=== PATIENT | male | born 2000 | race Two or more races ===

== ENCOUNTER 2024-11-17 18:08 | Emergency (ER) | payer MEDICAID, OTHER ==
[~2024-11-17] VITALS: Ht 172.7 cm; Wt 67.8 kg
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
--- NOTE | 2024-11-17 18:50 | DVH ---
EXAM: CT HEAD WITHOUT CONTRAST INDICATION: FACE INJURY TECHNIQUE: CT of the head without intravenous contrast. Radiation Dose : 1. Head: CT Dose: CTDI volume is 53.73 mGy. Dose-length product is 861.41 mGy*cm The dose indicators for CT are the volume Computed Tomography (CT) Dose Index (CTDIvol) and the Dose Length Product (DLP), and are measured in units of mGy and mGy-cm, respectively. These indicators are not patient dose, but values generated from the CT scanner acquisition factors. The report includes radiation exposure data for exposures received during this examination. COMPARISON: None FINDINGS: There is no evidence of acute intracranial hemorrhage, extra-axial collection, mass effect, midline s hift, herniation or hydrocephalus. The ventricles, sulci and cisterns are age appropriate. The chavarria-white differentiation is intact. Patchy periventricular and subcortical white matter hypoattenuation is nonspecific but may be related to small vessel ischemic disease. The visualized paranasal sinuses and mastoid air cells are clear. The surrounding soft tissues and osseous structures are unremarkable. IMPRESSION: 1. No acute intracranial abnormality. Radiation optimization: All CT scans at this facility use at least one of these dose optimization trey hniques: automated exposure control mA and/or kV adjustment per patient size (includes targeted exam s where dose is matched to clinical indication) or iterative reconstruction.
--- NOTE | 2024-11-17 19:04 | DVH ---
HISTORY: FACE INJURY TECHNIQUE: Nonenhanced axial images through the facial bones with coronal and sagittal MPR. Radiation Dose Information: CT Dose: CTDI volume is 66.97 mGy. Dose-length product is 1363.97 mGy*cm COMPARISON: None FINDINGS: Mandible: Nondisplaced acute traumatic fracture of the right mandibular body. Minimally displaced acute traumatic fracture of the left mandibular neck. Minimally displaced acute traumatic fracture of the left mandibular condylar process Maxilla: Unremarkable Zygomatic arches: Unremarkable Nasal bone: Unremarkable Orbits: Unremarkable Sinuses: Clear Facial swelling: None IMPRESSION: Nondisplaced acute traumatic fracture of the right mandibular body Minimally displaced acute traumatic fracture of the left mandibular condylar process. Minimally displaced acute traumatic fracture of the left mandibular coronoid process Radiation optimization: All CT scans at this facility use at least one of these dose optimization trey hniques: automated exposure control mA and/or kV adjustment per patient size (includes targeted exam s where dose is matched to clinical indication) or iterative reconstruction.
--- NOTE | 2024-11-17 19:29 | DVH ---
EXAM: CT NECK WITHOUT CONTRAST INDICATION: FACE INJURY EXAM DATE: 11/17/2024 06:30 PM COMPARISON: None TECHNIQUE: Multiple axial CT images of the neck were obtained using bone algorithm. Axial and coronal reformatting was done. Bone and soft tissue windows were reviewed. Radiation Dose Information: CT Dose: CTDI volume is 17.83 mGy. Dose-length product is 426.55 mGy*cm Findings: Nasopharynx, oropharynx, hypopharynx, and larynx are normal in caliber without evidence of focal mass . Parotid, submandibular, and sublingual glands are within normal limits. The tongue is unremarkable. Thyroid gland within normal limits. No evidence of superior mediastinal lymphadenopathy. Cervical soft tissues within normal limits with no evidence of significant cervical lymphadenopathy. Mildly displaced left mandibular ramus fracture. Impression: 1. Mildly displaced left mandibular ramus fracture.
[2024-11-17 19:45] VITALS: PULSE 84; RESP 14; O2SAT 98
[2024-11-17 19:48] LABS: Basophils # (auto) 0.1 10 ^3/uL (0-0.2); Basophils % (auto) 0.5 % (0.0-2.0); Eosinophils # (auto) 0 10 ^3/uL (0-0.8); Eosinophils % (auto) 0.3 % (0.0-7.0); Hematocrit 45.8 % (41.0-53.0); Hemoglobin 14.9 g/dL (13.5-17.5); Lymphocytes # (auto) 2.2 10 ^3/uL (0.4-5.4); Lymphocytes % (auto) 13.8 % (10.0-50.0); Mean Corpuscular Hemoglobin 29.1 pg (28.0-32.0); Mean Corpuscular Hgb Conc. 32.5 g/dL (32.0-36.0); Mean Corpuscular Volume 89.5 fL (80.0-100.0); Monocytes # (auto) 0.8 10 ^3/uL (0-1.3); Monocytes % (auto) 5.2 % (0.0-12.0); Neutrophils # (auto) 12.7 10 ^3/uL (1.6-8.6); Neutrophils % (auto) 80.2 % (37.0-80.0); Nucleated Red Blood Cells % 0.1 %; Platelet Count (auto) 430 10^3/uL (140-450); Red Blood Cells 5.12 10^6/uL (4.5-5.90); Red Cell Distribution Width 13.8 % (11.8-14.3); White Blood Cell 15.8 10^3/uL (4.4-10.8)
[2024-11-17] MEDS: ONDANSETRON HCL 4 MG/2 ML VIAL IV ONE (19:51)
[2024-11-17] MEDS: MORPHINE SULFATE INJ 2 MG/ml SYRG IV ONE (19:51)
[2024-11-17] MEDS: TETANUS-DIPTH-ACEL PERTUSSIS 0.5ML SYR Tdap IM ONE (19:53)
[2024-11-17 20:02] LABS: Alanine Aminotransferase 18 U/L (7-40); Albumin 4.8 g/dL (3.2-4.8); Alkaline Phosphatase 105 U/L (46-116); Anion Gap 11 (5-15); Aspartate Aminotransferase 22 U/L (13-40); BUN/Creatinine Ratio 9.4 (10.0-20.0); Bilirubin, Total 1.1 mg/dL (0.2-1.0); Calcium 9.9 mg/dL (8.7-10.4); Carbon Dioxide 23 mmol/L (20-31); Chloride 104 mmol/L (98-107); Glucose 102 mg/dL (74-106); Potassium 3.8 mmol/L (3.5-5.1); Sodium 138 mmol/L (136-145); Total Protein 7.5 g/dL (5.7-8.2)
[2024-11-17 20:03] LABS: Blood Urea Nitrogen 9 mg/dL (9-23)
[2024-11-17] MEDS: AMPICILLIN & SULBACTAM SODIUM 3 GM in SODIUM CHL 0.9% 100 ML IV STA (20:14)
[2024-11-17 20:54] LABS: Urine Bacteria MANY /hpf (None Seen); Urine Blood Negative /uL (Negative); Urine Clarity Turbid (Clear); Urine Color Yellow (Yellow); Urine Mucus FEW (None Seen); Urine Protein, UAD TRACE (Negative); Urine Specific Gravity 1.019 (1.001-1.035); Urine Sperm PRESENT /hpf (None Seen); Urine Squamous Epithelial Cell FEW /hpf (<5); Urine Urobilinogen Normal (Negative); Urine WBC 51 /HPF (0-3)
[2024-11-18] MEDS: MORPHINE SULFATE INJ 2 MG/ml SYRG IV ONE ×2 (00:42→02:20)
[2024-11-18] MEDS: KETOROLAC TROMETH 30 MG/ML 1ML VIAL IV ONE (02:19)
[2024-11-18] MEDS: ACETAMINOPHEN IV 1000 MG/100ML (10MG/ML) IV ONE (02:20)
[2024-11-18 04:20] VITALS: BP 137/80; PULSE 86; RESP 19; TEMP 98.5; O2SAT 98
== END 2024-11-18 04:37 | disposition short-term general hospital (02) ==
LOC: ER 18:08
DX: S02.612A Fracture of condylar process of left mandible, initial encounter for closed fracture (principal); S02.632A Fracture of coronoid process of left mandible, initial encounter for closed fracture; S01.512A Laceration without foreign body of oral cavity, initial encounter; Y04.0XXA Assault by unarmed brawl or fight, initial encounter; Y93.89 Activity, other specified; Y92.89 Other specified places as the place of occurrence of the external cause; Y99.8 Other external cause status
CPT/HCPCS: 36415; 70450; 70486; 70490; 80053; 81001; 85025; 86850; 86900; 86901; 90471; 90715; 96365; 96375; 96376; 99285; J1885; J2270; J2405; J0131